=== PATIENT | female | born 1940 | race Caucasian/White ===

== ENCOUNTER 2025-09-24 08:03 | Day surgery (SDC) | payer MEDICARE, OTHER ==
[2025-09-24] MEDS ORDERED: fentaNYL 100 MCG/2 ML SDV IV ONE (08:04)
[2025-09-24] MEDS ORDERED: Midazolam 1 MG/ML 2 ML SDV IV ONE (08:04)
[2025-09-24] MEDS: acetaZOLAMIDE 500 MG Cap.ER PO ONE (09:59)
[2025-09-24] MEDS: Lactated Ringers 1,000 ML IV PRN (11:48)
[2025-09-24] MEDS: Sodium Chloride 0.9% 10 ML Syringe FLUSH PRN (11:51)
== END 2025-09-24 10:24 ==
LOC: FB.SDS 08:03
PROVIDERS: ATTEND Ophthalmology
DX: H26.9 Unspecified cataract (principal); I12.9 Hypertensive chronic kidney disease with stage 1 through stage 4 chronic kidney disease, or unspecified chronic kidney disease; N18.31 Chronic kidney disease, stage 3a; E78.5 Hyperlipidemia, unspecified; K21.9 Gastro-esophageal reflux disease without esophagitis; E66.01 Morbid (severe) obesity due to excess calories; Z68.41 Body mass index [BMI] 40.0-44.9, adult; Z87.891 Personal history of nicotine dependence; Z79.899 Other long term (current) drug therapy
CPT/HCPCS: 00142; 99100; A9270-GY; J2250; J3010; J7120; V2632

== ENCOUNTER 2025-10-08 08:29 | Day surgery (SDC) | payer MEDICARE, OTHER ==
[2025-10-08] MEDS ORDERED: Midazolam 1 MG/ML 2 ML SDV IV ONE (08:30)
[2025-10-08] MEDS ORDERED: Sodium Chloride 0.9% 10 ML Syringe FLUSH PRN (08:30)
[2025-10-08] MEDS ORDERED: fentaNYL 100 MCG/2 ML SDV IV ONE (08:30)
[2025-10-08] MEDS: Lactated Ringers 1,000 ML IV SCH (09:16)
[2025-10-08] MEDS: acetaZOLAMIDE 500 MG Cap.ER PO ONE (10:18)
== END 2025-10-08 10:42 ==
LOC: FB.SDS 08:29
PROVIDERS: ATTEND Ophthalmology
DX: H26.9 Unspecified cataract (principal); E66.01 Morbid (severe) obesity due to excess calories; I12.9 Hypertensive chronic kidney disease with stage 1 through stage 4 chronic kidney disease, or unspecified chronic kidney disease; N18.31 Chronic kidney disease, stage 3a; Z68.41 Body mass index [BMI] 40.0-44.9, adult; Z79.82 Long term (current) use of aspirin; Z79.899 Other long term (current) drug therapy; Z87.891 Personal history of nicotine dependence
CPT/HCPCS: 66984; A9270; J2250; J3010; J7120; V2632; 00142; 99100